=== PATIENT | female | born 1985 | race Caucasian/White ===

== ENCOUNTER → 2020-08-05 | Outpatient (CLI) | payer OTHER ==
[~2020-08-05] MED LIST: AMPH20TA2 PO; METF500T17 PO; ZOLP12.52 PO
[2020-08-05 08:50] LABS: ALBUMIN 3.3 g/dL (3.4-5.0); ANION GAP 7 mmol/L (5-15); CALCIUM 8.6 mg/dL (8.5-10.1); CHLORIDE 110 mmol/L (98-107)
[2020-08-05 08:54] LABS: ALANINE AMINOTRANSFERASE 22 U/L (12-78); ALKALINE PHOSPHATASE 68 U/L (45-117); BILIRUBIN,TOTAL 0.4 mg/dL (0.2-1.0); TOTAL PROTEIN 6.7 g/dL (6.4-8.2)
== END | disposition home or self-care (01) ==
LOC: STAR 07:40
PROVIDERS: ATTEND Obstetrics & Gynecology Female Pelvic Medicine and Reconstructive Surgery
DX: Z01.818 Encounter for other preprocedural examination (principal); R10.2 Pelvic and perineal pain; N94.6 Dysmenorrhea, unspecified; N39.3 Stress incontinence (female) (male); N92.6 Irregular menstruation, unspecified; N81.2 Incomplete uterovaginal prolapse; Z20.822 Contact with and (suspected) exposure to COVID-19
CPT/HCPCS: 36415; 80053; 93005; U0003; U0005

== ENCOUNTER 2020-08-11 06:40 | Day surgery (SDC) | payer OTHER ==
[~2020-08-11] VITALS: Ht 167.6 cm; Wt 87.3 kg
[2020-08-11] MEDS ORDERED: EPINEPHRINE 1 MG/ML, 1ML ONE (06:55)
[2020-08-11] MEDS ORDERED: GENTAMICIN 80 MG/2 ML ONE (06:55)
[2020-08-11] MEDS ORDERED: VANCOMYCIN 500 MG ONE (06:55)
[2020-08-11] MEDS ORDERED: BUPIVACAINE/PF 0.25% ONE (06:55)
[2020-08-11 07:13] VITALS: BP 114/80
[2020-08-11 07:21] LABS: HCG UR SG 1.029 (1.003-1.030)
[2020-08-11] MEDS ORDERED: CHLORHEXIDINE 15 ML UDC PO ONE (07:30)
[2020-08-11] MEDS ORDERED: LACTATED RINGERS 1,000 ML IV SCH (07:30)
[2020-08-11] MEDS ORDERED: LIDOCAINE-MPF 2% ,5ML ONE (08:26)
[2020-08-11] MEDS ORDERED: MIDAZOLAM 1 MG/ML, 2ML ONE (08:26)
[2020-08-11] MEDS ORDERED: CEFAZOLIN 1,000 MG ONE ×2 (08:26)
[2020-08-11] MEDS ORDERED: ROCURONIUM 10MG/ML,5ML ONE (08:26)
[2020-08-11] MEDS ORDERED: PROPOFOL 10 MG/ML, 20ML ONE (08:26)
[2020-08-11] MEDS ORDERED: DEXAMETHASONE 4 MG/ML, 1ML ONE (08:26)
[2020-08-11] MEDS ORDERED: FENTANYL PF 250 MCG/5ML ONE (08:26)
[2020-08-11] MEDS ORDERED: ONDANSETRON 2MG/ML, 2ML ONE (08:26)
[2020-08-11] MEDS ORDERED: SCOPOLAMINE 1MG PATCH TD ONE ×2 (08:50→09:00)
[2020-08-11] MEDS ORDERED: NEOSTIGMINE 1 MG/ML, 10ML ONE (09:10)
[2020-08-11] MEDS ORDERED: GLYCOPYRROLATE 0.2MG/1ML, 5ML ONE (09:10)
[2020-08-11] MEDS ORDERED: HYDROmorphone 1 MG/ML, 1ML INJ IVPush PRN (11:30)
[2020-08-11] MEDS ORDERED: HYDROmorphone 1 MG/ML, 1ML INJ ONE (11:30)
[2020-08-11] MEDS ORDERED: PROMETHAZINE 25 MG/ML, 1ML IVPush PRN (11:30)
[2020-08-11] MEDS ORDERED: METHOCARBAMOL 1,000 MG in DEXTROSE 5% 100 ML IV PRN (11:30)
[2020-08-11] MEDS ORDERED: FENTANYL PF 100 MCG/2ML ONE (11:30)
[2020-08-11] MEDS ORDERED: OXYcodone 5 MG/5 ML ORAL.SOL UDC ONE (11:30)
[2020-08-11] MEDS ORDERED: PROMETHAZINE 25 MG/ML, 1ML ONE (11:30)
[2020-08-11] MEDS ORDERED: DIAZEPAM 5 MG/ML, 2ML IVPush PRN (11:30)
[2020-08-11] MEDS ORDERED: MEPERIDINE/PF 25MG/0.5ML IVPush PRN (11:30)
[2020-08-11] MEDS ORDERED: OXYcodone 5 MG/5 ML ORAL.SOL UDC PO PRN (11:30)
[2020-08-11] MEDS ORDERED: FENTANYL PF 100 MCG/2ML IV PRN (12:00)
== END 2020-08-11 15:20 | disposition home or self-care (01) ==
LOC: OUT 06:40
PROVIDERS: ATTEND Obstetrics & Gynecology Female Pelvic Medicine and Reconstructive Surgery
DX: N92.1 Excessive and frequent menstruation with irregular cycle (principal); N80.0 Endometriosis of uterus; N72 Inflammatory disease of cervix uteri; N94.6 Dysmenorrhea, unspecified; N39.3 Stress incontinence (female) (male); N81.2 Incomplete uterovaginal prolapse; E11.9 Type 2 diabetes mellitus without complications; G43.909 Migraine, unspecified, not intractable, without status migrainosus; F12.90 Cannabis use, unspecified, uncomplicated; Z72.89 Other problems related to lifestyle; F17.210 Nicotine dependence, cigarettes, uncomplicated; Z79.899 Other long term (current) drug therapy; Z88.8 Allergy status to other drugs, medicaments and biological substances; Z98.890 Other specified postprocedural states; Z82.49 Family history of ischemic heart disease and other diseases of the circulatory system; Z83.3 Family history of diabetes mellitus
CPT/HCPCS: 57265; 57282; 57288; 58552; 81025; 82962; 88307; C1771; J0171; J0690; J1100; J1170; J1580; J2250; J2405; J2550; J2704; J2710; J2800; J3010; J3370; J7120

== ENCOUNTER 2020-09-09 22:31 | Emergency (ER) | payer OTHER ==
[~2020-09-09] VITALS: Ht 167.6 cm; Wt 89.8 kg
[2020-09-09 22:41] VITALS: BP 139/76
--- NOTE | 2020-09-09 23:07 | NUR ---
care giver note: Pt to room from lobby.
--- NOTE | 2020-09-10 00:05 | NUR ---
ROOM SET UP FOR PELVIC. 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
== END 2020-09-10 01:00 | disposition home or self-care (01) ==
LOC: ED 23:32
DX: N93.9 Abnormal uterine and vaginal bleeding, unspecified (principal)
CPT/HCPCS: 99281; 99284